=== PATIENT | male | born 1955 | race Caucasian/White ===

== ENCOUNTER 2021-10-17 10:24 | Inpatient (IN) | payer BC ==
[2021-10-17] VITALS (7 sets, daily range): BP systolic 82–103; BP diastolic 50–73
[~2021-10-17] VITALS: Ht 182.9 cm; Wt 95.0 kg
[2021-10-17 11:00] LABS: HEMATOCRIT 37.6 % (42.0-52.0); MEAN CELL VOLUME 85.8 fl (80.0-94.0); MEAN CORPUSCULAR HGB 29.9 pg (27.0-31.0); MEAN CORPUSCULAR HGB CONC 34.8 g/dl (33.0-37.0); MEAN PLATELET VOLUME 9.7 fl (9.6-12.3); PLATELET COUNT AUTOMATED 198 10*3/uL (130-400); RED BLOOD COUNT 4.38 10*6/uL (4.50-5.90); RED CELL DISTRI WIDTH 12.9 % (0-14.5); WHITE BLOOD COUNT 10.1 10*3/uL (4.8-10.8)
[2021-10-17 11:11] LABS: ACT PARTIAL THROMBO TIME 28.2 SECONDS (20.0-32.1); INTERNATIONAL NORM RATIO 1.3 (2.0-3.5)
[2021-10-17 11:16] LABS: BURR CELLS FEW; PLATELET SUFFICIENCY NORMAL (NORMAL); POLYCHROMASIA SLIGHT; TOTAL CELLS COUNTED 100 #CELLS
[2021-10-17 11:17] LABS: ALKALINE PHOSPHATASE 84 U/L (45-117); BUN 24 mg/dl (7-24); CHLORIDE 105 mmol/L (98-107); CREATININE 1.23 mg/dL (0.70-1.30); LIPASE 81 U/L (73-393); POTASSIUM 3.6 mmol/L (3.5-5.1); SGOT/AST 49 IU/L (3-35); SGPT/ALT 53 U/L (12-78); SODIUM 135 mmol/L (136-145); TOTAL PROTEIN 7.4 gm/dL (6.4-8.2)
[2021-10-18] VITALS: BP 97/55
[2021-10-18 04:00] VITALS: BP 99/56
[2021-10-18 06:26] LABS: CHLORIDE 112 mmol/L (98-107); POTASSIUM 3.7 mmol/L (3.5-5.1); SODIUM 141 mmol/L (136-145)
[2021-10-18 06:27] LABS: BASO % 0.1 % (0.0-1.0); HEMATOCRIT 37.5 % (42.0-52.0); LYMPH # 0.7 10*3/uL (1.3-4.4); LYMPH % 6.4 % (27.0-41.0); MEAN CELL VOLUME 88.4 fl (80.0-94.0); MEAN CORPUSCULAR HGB 29.5 pg (27.0-31.0); MEAN CORPUSCULAR HGB CONC 33.3 g/dl (33.0-37.0); MEAN PLATELET VOLUME 10.7 fl (9.6-12.3); MONO # 0.3 10*3/uL (0.1-1.0); MONO % 2.8 % (3.0-9.0); NEUT # 9.5 10*3/uL (2.3-7.9); PLATELET COUNT AUTOMATED 179 10*3/uL (130-400); RED BLOOD COUNT 4.24 10*6/uL (4.50-5.90); RED CELL DISTRI WIDTH 12.9 % (0-14.5); WHITE BLOOD COUNT 10.5 10*3/uL (4.8-10.8)
[2021-10-18 06:44] LABS: ALBUMIN 1.7 gm/dl (3.1-4.5); ALKALINE PHOSPHATASE 85 U/L (45-117); BUN 29 mg/dl (7-24); CREATININE 0.98 mg/dL (0.70-1.30); SGOT/AST 51 IU/L (3-35); SGPT/ALT 45 U/L (12-78); TOTAL PROTEIN 6.5 gm/dL (6.4-8.2)
[2021-10-18 08:00] VITALS: BP 103/67
[2021-10-18 12:00] VITALS: BP 117/35
[2021-10-18 16:00] VITALS: BP 98/56
[2021-10-18 20:00] VITALS: BP 111/74
[2021-10-19] VITALS: BP 97/44
[2021-10-19 04:00] VITALS: BP 98/52
[2021-10-19 06:28] LABS: MEAN CORPUSCULAR HGB 29.1 pg (27.0-31.0); MEAN CORPUSCULAR HGB CONC 33.1 g/dl (33.0-37.0); MEAN PLATELET VOLUME 9.9 fl (9.6-12.3); PLATELET COUNT AUTOMATED 191 10*3/uL (130-400); RED BLOOD COUNT 4.43 10*6/uL (4.50-5.90); RED CELL DISTRI WIDTH 13.1 % (0-14.5); WHITE BLOOD COUNT 9.3 10*3/uL (4.8-10.8)
[2021-10-19 06:41] LABS: BUN 31 mg/dl (7-24); CHLORIDE 111 mmol/L (98-107); CREATININE 0.82 mg/dL (0.70-1.30); SODIUM 142 mmol/L (136-145)
[2021-10-19 07:26] LABS: PLATELET SUFFICIENCY NORMAL (NORMAL); TOTAL CELLS COUNTED 100 #CELLS
[2021-10-19 08:00] VITALS: BP 112/86
[2021-10-19 12:00] VITALS: BP 96/56
[2021-10-19 16:00] VITALS: BP 108/68
[2021-10-19 20:00] VITALS: BP 103/61
[2021-10-20] VITALS: BP 125/63
[2021-10-20 04:00] VITALS: BP 124/73
[2021-10-20 05:03] LABS: BASO % 0.1 % (0.0-1.0); EOS # 0.1 10*3/uL (0.0-0.4); EOS % 0.9 % (1.0-4.0); HEMATOCRIT 41.6 % (42.0-52.0); LYMPH # 0.9 10*3/uL (1.3-4.4); LYMPH % 8.6 % (27.0-41.0); MEAN CELL VOLUME 90.4 fl (80.0-94.0); MEAN CORPUSCULAR HGB 29.1 pg (27.0-31.0); MEAN CORPUSCULAR HGB CONC 32.2 g/dl (33.0-37.0); MEAN PLATELET VOLUME 9.9 fl (9.6-12.3); MONO # 0.3 10*3/uL (0.1-1.0); MONO % 2.4 % (3.0-9.0); NEUT % 87.3 % (47.0-73.0); PLATELET COUNT AUTOMATED 170 10*3/uL (130-400); RED CELL DISTRI WIDTH 13.6 % (0-14.5); WHITE BLOOD COUNT 10.4 10*3/uL (4.8-10.8)
[2021-10-20 05:29] LABS: ALKALINE PHOSPHATASE 110 U/L (45-117); BUN 28 mg/dl (7-24); CHLORIDE 111 mmol/L (98-107); CREATININE 0.89 mg/dL (0.70-1.30); SGOT/AST 136 IU/L (3-35); SGPT/ALT 149 U/L (12-78); SODIUM 142 mmol/L (136-145); TOTAL PROTEIN 6.3 gm/dL (6.4-8.2)
[2021-10-20 05:48] LABS: POTASSIUM 5.3 mmol/L (3.5-5.1)
[2021-10-20 07:32] VITALS: BP 127/61
[2021-10-20 11:15] VITALS: BP 117/69
[2021-10-20 16:00] VITALS: BP 96/76
[2021-10-20 20:00] VITALS: BP 110/65
[2021-10-21] VITALS: BP 102/67
[2021-10-21 04:00] VITALS: BP 112/70
[2021-10-21 06:16] LABS: HEMATOCRIT 43.2 % (42.0-52.0); MEAN CELL VOLUME 90.9 fl (80.0-94.0); MEAN CORPUSCULAR HGB 29.7 pg (27.0-31.0); MEAN CORPUSCULAR HGB CONC 32.6 g/dl (33.0-37.0); MEAN PLATELET VOLUME 10.2 fl (9.6-12.3); PLATELET COUNT AUTOMATED 139 10*3/uL (130-400); RED BLOOD COUNT 4.75 10*6/uL (4.50-5.90); RED CELL DISTRI WIDTH 13.7 % (0-14.5)
[2021-10-21 06:30] LABS: BUN 25 mg/dl (7-24); CHLORIDE 107 mmol/L (98-107); POTASSIUM 4.8 mmol/L (3.5-5.1); SGOT/AST 106 IU/L (3-35); SODIUM 138 mmol/L (136-145)
[2021-10-21 06:34] LABS: ALKALINE PHOSPHATASE 120 U/L (45-117); CREATININE 0.71 mg/dL (0.70-1.30); SGPT/ALT 181 U/L (12-78); TOTAL PROTEIN 6.1 gm/dL (6.4-8.2)
[2021-10-21 06:48] LABS: ATYPICAL LYMPHS 1 % (0-0); PLATELET SUFFICIENCY NORMAL (NORMAL); POLYCHROMASIA SLIGHT; TOTAL CELLS COUNTED 100 #CELLS; TOXIC GRANULATION SLIGHT
[2021-10-21 08:00] VITALS: BP 103/62
[2021-10-21 12:00] VITALS: BP 107/51
[2021-10-21 12:12] LABS: ABG BASE EXCESS 1.3 mmol/L (-2.0-2.0); ARTERIAL BLOOD GAS PH 7.477 (7.35-7.45); ARTERIAL BLOOD GAS PO2 64.6 (80-90)
[2021-10-21 16:00] VITALS: BP 101/68
[2021-10-21 20:00] VITALS: BP 107/72
[2021-10-22] VITALS: BP 104/60
[2021-10-22 04:00] VITALS: BP 102/67
[2021-10-22 06:03] LABS: MEAN CELL VOLUME 89.6 fl (80.0-94.0); MEAN CORPUSCULAR HGB 29.4 pg (27.0-31.0); MEAN CORPUSCULAR HGB CONC 32.8 g/dl (33.0-37.0); MEAN PLATELET VOLUME 9.7 fl (9.6-12.3); PLATELET COUNT AUTOMATED 179 10*3/uL (130-400); RED CELL DISTRI WIDTH 13.2 % (0-14.5); WHITE BLOOD COUNT 15.4 10*3/uL (4.8-10.8)
[2021-10-22 06:06] LABS: BUN 29 mg/dl (7-24); CHLORIDE 105 mmol/L (98-107); CREATININE 0.73 mg/dL (0.70-1.30); POTASSIUM 5.1 mmol/L (3.5-5.1); SGOT/AST 74 IU/L (3-35); SGPT/ALT 163 U/L (12-78); SODIUM 136 mmol/L (136-145)
[2021-10-22 06:09] LABS: ALKALINE PHOSPHATASE 107 U/L (45-117); TOTAL PROTEIN 6.1 gm/dL (6.4-8.2)
[2021-10-22 06:48] LABS: PLATELET SUFFICIENCY NORMAL (NORMAL); TOTAL CELLS COUNTED 100 #CELLS; VACUOLATION OF NEUTROPHILS SLIGHT
[2021-10-22 07:42] VITALS: BP 103/61
[2021-10-22 11:30] VITALS: BP 117/55
[2021-10-22 16:00] VITALS: BP 101/64
[2021-10-22 20:00] VITALS: BP 103/64
[2021-10-23] VITALS: BP 110/67
[2021-10-23 04:00] VITALS: BP 97/57
[2021-10-23 05:55] LABS: ALBUMIN 2.1 gm/dl (3.1-4.5); ALKALINE PHOSPHATASE 109 U/L (45-117); BUN 27 mg/dl (7-24); CHLORIDE 104 mmol/L (98-107); CREATININE 0.75 mg/dL (0.70-1.30); POTASSIUM 4.4 mmol/L (3.5-5.1); SGOT/AST 63 IU/L (3-35); SGPT/ALT 145 U/L (12-78); SODIUM 137 mmol/L (136-145); TOTAL PROTEIN 5.8 gm/dL (6.4-8.2)
[2021-10-23 06:23] LABS: HEMATOCRIT 42.7 % (42.0-52.0); MEAN CELL VOLUME 89.1 fl (80.0-94.0); MEAN CORPUSCULAR HGB 30.1 pg (27.0-31.0); MEAN CORPUSCULAR HGB CONC 33.7 g/dl (33.0-37.0); MEAN PLATELET VOLUME 10.5 fl (9.6-12.3); PLATELET COUNT AUTOMATED 197 10*3/uL (130-400); RED BLOOD COUNT 4.79 10*6/uL (4.50-5.90); RED CELL DISTRI WIDTH 13.4 % (0-14.5); WHITE BLOOD COUNT 15.2 10*3/uL (4.8-10.8)
[2021-10-23 07:31] LABS: TOTAL CELLS COUNTED 100 #CELLS
[2021-10-23 07:32] LABS: BURR CELLS FEW; PLATELET SUFFICIENCY NORMAL (NORMAL); POLYCHROMASIA SLIGHT; TOXIC GRANULATION SLIGHT
[2021-10-23 08:00] VITALS: BP 109/69
[2021-10-23 12:00] VITALS: BP 112/60
[2021-10-23 15:48] VITALS: BP 112/63
[2021-10-23 20:00] VITALS: BP 114/64; BP 94/56
[2021-10-24] VITALS: BP 108/55
[2021-10-24 08:25] VITALS: BP 99/61
[2021-10-24 12:35] VITALS: BP 96/51
[2021-10-24 20:00] VITALS: BP 95/50
[2021-10-25] VITALS: BP 105/55
[2021-10-25 03:26] LABS: ABG BASE EXCESS 0.3 mmol/L (-2.0-2.0); ARTERIAL BLOOD GAS PH 7.468 (7.35-7.45); ARTERIAL BLOOD GAS PO2 72.7 (80-90)
[2021-10-25 06:37] LABS: ALBUMIN 2.3 gm/dl (3.1-4.5); BUN 25 mg/dl (7-24); CHLORIDE 105 mmol/L (98-107); POTASSIUM 4.5 mmol/L (3.5-5.1); SODIUM 135 mmol/L (136-145)
[2021-10-25 06:42] LABS: ALKALINE PHOSPHATASE 83 U/L (45-117); CREATININE 0.82 mg/dL (0.70-1.30); SGOT/AST 30 IU/L (3-35); SGPT/ALT 98 U/L (12-78); TOTAL PROTEIN 5.7 gm/dL (6.4-8.2)
[2021-10-25 06:45] LABS: HEMATOCRIT 44.9 % (42.0-52.0); MEAN CELL VOLUME 89.4 fl (80.0-94.0); MEAN CORPUSCULAR HGB 29.9 pg (27.0-31.0); MEAN CORPUSCULAR HGB CONC 33.4 g/dl (33.0-37.0); MEAN PLATELET VOLUME 9.9 fl (9.6-12.3); PLATELET COUNT AUTOMATED 235 10*3/uL (130-400); RED BLOOD COUNT 5.02 10*6/uL (4.50-5.90); RED CELL DISTRI WIDTH 13.9 % (0-14.5); WHITE BLOOD COUNT 15.2 10*3/uL (4.8-10.8)
[2021-10-25 08:00] VITALS: BP 110/66
[2021-10-25 08:04] LABS: BURR CELLS FEW; PLATELET SUFFICIENCY NORMAL (NORMAL); POLYCHROMASIA SLIGHT; TOTAL CELLS COUNTED 100 #CELLS
[2021-10-25 08:05] LABS: TOXIC GRANULATION SLIGHT
[2021-10-25 12:00] VITALS: BP 99/54
[2021-10-25 16:00] VITALS: BP 94/71
[2021-10-25 20:00] VITALS: BP 104/64
[2021-10-26] VITALS: BP 105/77; BP 120/76
[2021-10-26 04:00] VITALS: BP 109/66
[2021-10-26 06:41] LABS: MEAN CELL VOLUME 87.6 fl (80.0-94.0); MEAN CORPUSCULAR HGB 29.7 pg (27.0-31.0); MEAN PLATELET VOLUME 9.7 fl (9.6-12.3); PLATELET COUNT AUTOMATED 255 10*3/uL (130-400); RED BLOOD COUNT 4.91 10*6/uL (4.50-5.90); RED CELL DISTRI WIDTH 13.9 % (0-14.5)
[2021-10-26 06:52] LABS: ALBUMIN 2.3 gm/dl (3.1-4.5); BUN 27 mg/dl (7-24); CHLORIDE 104 mmol/L (98-107); POTASSIUM 4.3 mmol/L (3.5-5.1); SODIUM 135 mmol/L (136-145)
[2021-10-26 06:55] LABS: ALKALINE PHOSPHATASE 80 U/L (45-117); CREATININE 0.86 mg/dL (0.70-1.30); SGOT/AST 32 IU/L (3-35); SGPT/ALT 84 U/L (12-78); TOTAL PROTEIN 5.5 gm/dL (6.4-8.2)
[2021-10-26 08:00] VITALS: BP 112/79
[2021-10-26 08:02] LABS: BURR CELLS FEW; PLATELET SUFFICIENCY NORMAL (NORMAL); POLYCHROMASIA SLIGHT; TOTAL CELLS COUNTED 100 #CELLS; TOXIC GRANULATION SLIGHT; VACUOLATION OF NEUTROPHILS SLIGHT
[2021-10-26 12:00] VITALS: BP 107/68
[2021-10-26 16:00] VITALS: BP 105/77
[2021-10-27] VITALS: BP 105/77
[2021-10-27 06:44] LABS: HEMATOCRIT 44.7 % (42.0-52.0); MEAN CELL VOLUME 88.5 fl (80.0-94.0); MEAN CORPUSCULAR HGB 29.7 pg (27.0-31.0); MEAN CORPUSCULAR HGB CONC 33.6 g/dl (33.0-37.0); MEAN PLATELET VOLUME 9.4 fl (9.6-12.3); PLATELET COUNT AUTOMATED 271 10*3/uL (130-400); RED BLOOD COUNT 5.05 10*6/uL (4.50-5.90); RED CELL DISTRI WIDTH 14.2 % (0-14.5); WHITE BLOOD COUNT 17.6 10*3/uL (4.8-10.8)
[2021-10-27 06:57] LABS: ALBUMIN 2.4 gm/dl (3.1-4.5); BUN 25 mg/dl (7-24); CHLORIDE 103 mmol/L (98-107); POTASSIUM 4.5 mmol/L (3.5-5.1); SODIUM 134 mmol/L (136-145)
[2021-10-27 07:01] LABS: ALKALINE PHOSPHATASE 117 U/L (45-117); CREATININE 0.85 mg/dL (0.70-1.30); SGOT/AST 24 IU/L (3-35); SGPT/ALT 76 U/L (12-78); TOTAL PROTEIN 5.8 gm/dL (6.4-8.2)
[2021-10-27 07:36] LABS: TOTAL CELLS COUNTED 100 #CELLS
[2021-10-27 07:37] LABS: PLATELET SUFFICIENCY NORMAL (NORMAL)
[2021-10-27 08:00] VITALS: BP 108/63
[2021-10-27 12:00] VITALS: BP 110/65
[2021-10-27 14:00] VITALS: BP 110/65
[2021-10-27 16:00] VITALS: BP 103/60
[2021-10-27 20:00] VITALS: BP 104/54; BP 106/64; BP 94/67
[2021-10-28] VITALS: BP 111/64
[2021-10-28 06:55] LABS: HEMATOCRIT 46.7 % (42.0-52.0); MEAN CELL VOLUME 91.2 fl (80.0-94.0); MEAN CORPUSCULAR HGB 29.7 pg (27.0-31.0); MEAN CORPUSCULAR HGB CONC 32.5 g/dl (33.0-37.0); MEAN PLATELET VOLUME 9.3 fl (9.6-12.3); PLATELET COUNT AUTOMATED 273 10*3/uL (130-400); RED BLOOD COUNT 5.12 10*6/uL (4.50-5.90); RED CELL DISTRI WIDTH 14.2 % (0-14.5); WHITE BLOOD COUNT 19.5 10*3/uL (4.8-10.8)
[2021-10-28 07:18] LABS: ALBUMIN 2.3 gm/dl (3.1-4.5); BUN 28 mg/dl (7-24); CHLORIDE 104 mmol/L (98-107); CREATININE 1.02 mg/dL (0.70-1.30); POTASSIUM 4.4 mmol/L (3.5-5.1); SGOT/AST 28 IU/L (3-35); SGPT/ALT 75 U/L (12-78); SODIUM 135 mmol/L (136-145)
[2021-10-28 07:20] LABS: ALKALINE PHOSPHATASE 79 U/L (45-117); TOTAL PROTEIN 5.9 gm/dL (6.4-8.2)
[2021-10-28 07:33] LABS: ATYPICAL LYMPHS 3 % (0-0); BURR CELLS FEW; PLATELET SUFFICIENCY NORMAL (NORMAL); POLYCHROMASIA SLIGHT; SCHISTOCYTES FEW; TOTAL CELLS COUNTED 100 #CELLS; TOXIC GRANULATION SLIGHT; VACUOLATION OF NEUTROPHILS SLIGHT
[2021-10-28 12:00] VITALS: BP 98/63
[2021-10-28 16:00] VITALS: BP 112/62
[2021-10-28 20:00] VITALS: BP 105/56
[2021-10-29] VITALS: BP 97/60
[2021-10-29 06:19] LABS: CHLORIDE 104 mmol/L (98-107); POTASSIUM 4.4 mmol/L (3.5-5.1); SODIUM 137 mmol/L (136-145)
[2021-10-29 06:27] LABS: HEMATOCRIT 43.4 % (42.0-52.0); MEAN CELL VOLUME 90.4 fl (80.0-94.0); MEAN CORPUSCULAR HGB CONC 33.2 g/dl (33.0-37.0); MEAN PLATELET VOLUME 9.6 fl (9.6-12.3); PLATELET COUNT AUTOMATED 259 10*3/uL (130-400); RED CELL DISTRI WIDTH 14.1 % (0-14.5); WHITE BLOOD COUNT 19.9 10*3/uL (4.8-10.8)
[2021-10-29 06:29] LABS: ALBUMIN 2.3 gm/dl (3.1-4.5); ALKALINE PHOSPHATASE 74 U/L (45-117); BUN 24 mg/dl (7-24); CREATININE 0.75 mg/dL (0.70-1.30); SGOT/AST 23 IU/L (3-35); SGPT/ALT 58 U/L (12-78); TOTAL PROTEIN 5.4 gm/dL (6.4-8.2)
[2021-10-29 07:24] LABS: ATYPICAL LYMPHS 1 % (0-0); BURR CELLS FEW; PLATELET SUFFICIENCY NORMAL (NORMAL); POLYCHROMASIA SLIGHT; TOTAL CELLS COUNTED 100 #CELLS; TOXIC GRANULATION SLIGHT
[2021-10-29 08:00] VITALS: BP 88/60
[2021-10-29 12:00] VITALS: BP 107/57
[2021-10-29 16:00] VITALS: BP 110/73
[2021-10-29 20:00] VITALS: BP 96/52; BP 99/53
[2021-10-30] VITALS (7 sets, daily range): BP systolic 86–121; BP diastolic 50–74
[2021-10-30 01:46] LABS: ABG BASE EXCESS 0.7 mmol/L (-2.0-2.0); ARTERIAL BLOOD GAS PH 7.464 (7.35-7.45); ARTERIAL BLOOD GAS PO2 64.5 (80-90)
[2021-10-30 06:06] LABS: ALBUMIN 2.3 gm/dl (3.1-4.5); ALKALINE PHOSPHATASE 80 U/L (45-117); BUN 19 mg/dl (7-24); CHLORIDE 103 mmol/L (98-107); CREATININE 0.68 mg/dL (0.70-1.30); POTASSIUM 3.5 mmol/L (3.5-5.1); SGOT/AST 27 IU/L (3-35); SGPT/ALT 59 U/L (12-78); SODIUM 136 mmol/L (136-145); TOTAL PROTEIN 5.6 gm/dL (6.4-8.2)
[2021-10-30 06:12] LABS: BASO % 0.2 % (0.0-1.0); EOS # 0.4 10*3/uL (0.0-0.4); EOS % 1.9 % (1.0-4.0); HEMATOCRIT 44.4 % (42.0-52.0); LYMPH # 1.1 10*3/uL (1.3-4.4); LYMPH % 5.8 % (27.0-41.0); MEAN CELL VOLUME 89.7 fl (80.0-94.0); MEAN CORPUSCULAR HGB 29.9 pg (27.0-31.0); MEAN CORPUSCULAR HGB CONC 33.3 g/dl (33.0-37.0); MEAN PLATELET VOLUME 9.4 fl (9.6-12.3); MONO # 0.7 10*3/uL (0.1-1.0); MONO % 3.6 % (3.0-9.0); NEUT # 17.4 10*3/uL (2.3-7.9); NEUT % 87.7 % (47.0-73.0); PLATELET COUNT AUTOMATED 258 10*3/uL (130-400); RED BLOOD COUNT 4.95 10*6/uL (4.50-5.90); RED CELL DISTRI WIDTH 14.1 % (0-14.5); WHITE BLOOD COUNT 19.8 10*3/uL (4.8-10.8)
[2021-10-31] VITALS: BP 92/62
[2021-10-31 06:26] LABS: BASO % 0.1 % (0.0-1.0); EOS # 0.6 10*3/uL (0.0-0.4); EOS % 3.7 % (1.0-4.0); HEMATOCRIT 48.3 % (42.0-52.0); LYMPH # 1.3 10*3/uL (1.3-4.4); LYMPH % 8.3 % (27.0-41.0); MEAN CELL VOLUME 90.3 fl (80.0-94.0); MEAN CORPUSCULAR HGB 29.7 pg (27.0-31.0); MEAN CORPUSCULAR HGB CONC 32.9 g/dl (33.0-37.0); MEAN PLATELET VOLUME 9.2 fl (9.6-12.3); MONO # 0.7 10*3/uL (0.1-1.0); MONO % 4.8 % (3.0-9.0); NEUT # 12.4 10*3/uL (2.3-7.9); NEUT % 82.4 % (47.0-73.0); PLATELET COUNT AUTOMATED 285 10*3/uL (130-400); RED BLOOD COUNT 5.35 10*6/uL (4.50-5.90); RED CELL DISTRI WIDTH 14.6 % (0-14.5)
[2021-10-31 06:27] LABS: ALKALINE PHOSPHATASE 83 U/L (45-117); CHLORIDE 104 mmol/L (98-107); POTASSIUM 3.9 mmol/L (3.5-5.1); SODIUM 135 mmol/L (136-145)
[2021-10-31 06:34] LABS: ALBUMIN 2.4 gm/dl (3.1-4.5); BUN 16 mg/dl (7-24); CREATININE 0.76 mg/dL (0.70-1.30); SGOT/AST 21 IU/L (3-35); SGPT/ALT 50 U/L (12-78); TOTAL PROTEIN 5.9 gm/dL (6.4-8.2)
[2021-10-31 08:00] VITALS: BP 94/60
[2021-10-31 12:00] VITALS: BP 97/69
[2021-10-31 16:00] VITALS: BP 102/76
[2021-10-31 20:00] VITALS: BP 111/61
[2021-11-01] VITALS: BP 84/60; BP 90/42
[2021-11-01 04:00] VITALS: BP 94/48
[2021-11-01 08:00] VITALS: BP 93/55
[2021-11-01 12:00] VITALS: BP 81/49
[2021-11-01 16:00] VITALS: BP 94/51
[2021-11-02] VITALS: BP 95/58
[2021-11-02 07:06] LABS: BASO % 0.2 % (0.0-1.0); EOS # 0.7 10*3/uL (0.0-0.4); EOS % 5.8 % (1.0-4.0); HEMATOCRIT 42.8 % (42.0-52.0); LYMPH # 1.1 10*3/uL (1.3-4.4); MEAN CELL VOLUME 89.9 fl (80.0-94.0); MEAN CORPUSCULAR HGB 30.3 pg (27.0-31.0); MEAN CORPUSCULAR HGB CONC 33.6 g/dl (33.0-37.0); MONO # 0.8 10*3/uL (0.1-1.0); MONO % 6.8 % (3.0-9.0); NEUT # 9.5 10*3/uL (2.3-7.9); NEUT % 77.6 % (47.0-73.0); PLATELET COUNT AUTOMATED 203 10*3/uL (130-400); RED BLOOD COUNT 4.76 10*6/uL (4.50-5.90); RED CELL DISTRI WIDTH 14.4 % (0-14.5); WHITE BLOOD COUNT 12.3 10*3/uL (4.8-10.8)
[2021-11-02 07:21] LABS: ALBUMIN 2.2 gm/dl (3.1-4.5); BUN 12 mg/dl (7-24); CHLORIDE 104 mmol/L (98-107); CREATININE 0.71 mg/dL (0.70-1.30); POTASSIUM 3.8 mmol/L (3.5-5.1); SGOT/AST 15 IU/L (3-35); SGPT/ALT 37 U/L (12-78); SODIUM 135 mmol/L (136-145); TOTAL PROTEIN 5.6 gm/dL (6.4-8.2)
[2021-11-02 07:24] LABS: ALKALINE PHOSPHATASE 74 U/L (45-117); CPK 24 U/L (39-308)
[2021-11-02 08:00] VITALS: BP 86/59
[2021-11-02 12:00] VITALS: BP 99/57
[2021-11-02 16:00] VITALS: BP 117/73
[2021-11-02 20:00] VITALS: BP 100/60
[2021-11-03] VITALS: BP 102/61
[2021-11-03 04:00] VITALS: BP 92/50
[2021-11-03 06:23] LABS: BASO % 0.2 % (0.0-1.0); EOS # 0.9 10*3/uL (0.0-0.4); EOS % 6.8 % (1.0-4.0); HEMATOCRIT 41.2 % (42.0-52.0); LYMPH % 8.1 % (27.0-41.0); MEAN CELL VOLUME 88.8 fl (80.0-94.0); MEAN CORPUSCULAR HGB CONC 33.7 g/dl (33.0-37.0); MEAN PLATELET VOLUME 8.9 fl (9.6-12.3); MONO # 1.2 10*3/uL (0.1-1.0); MONO % 9.3 % (3.0-9.0); NEUT # 9.4 10*3/uL (2.3-7.9); PLATELET COUNT AUTOMATED 180 10*3/uL (130-400); RED BLOOD COUNT 4.64 10*6/uL (4.50-5.90); RED CELL DISTRI WIDTH 14.4 % (0-14.5); WHITE BLOOD COUNT 12.5 10*3/uL (4.8-10.8)
[2021-11-03 08:00] VITALS: BP 108/81
[2021-11-03 10:33] LABS: ALBUMIN 2.2 gm/dl (3.1-4.5); BUN 11 mg/dl (7-24); CHLORIDE 109 mmol/L (98-107); CREATININE 0.71 mg/dL (0.70-1.30); POTASSIUM 3.9 mmol/L (3.5-5.1); SGOT/AST 15 IU/L (3-35); SGPT/ALT 40 U/L (12-78); SODIUM 139 mmol/L (136-145)
[2021-11-03 10:36] LABS: ALKALINE PHOSPHATASE 75 U/L (45-117); CPK 18 U/L (39-308); TOTAL PROTEIN 5.8 gm/dL (6.4-8.2)
[2021-11-03 12:00] VITALS: BP 99/54
[2021-11-03 17:48] VITALS: BP 100/58
[2021-11-03 20:00] VITALS: BP 108/58
[2021-11-04] VITALS: BP 114/68
[2021-11-04 06:52] LABS: BASO % 0.3 % (0.0-1.0); EOS # 0.7 10*3/uL (0.0-0.4); EOS % 6.8 % (1.0-4.0); HEMATOCRIT 39.2 % (42.0-52.0); LYMPH # 1.3 10*3/uL (1.3-4.4); LYMPH % 12.1 % (27.0-41.0); MEAN CELL VOLUME 88.3 fl (80.0-94.0); MEAN CORPUSCULAR HGB 30.2 pg (27.0-31.0); MEAN CORPUSCULAR HGB CONC 34.2 g/dl (33.0-37.0); MEAN PLATELET VOLUME 9.3 fl (9.6-12.3); MONO # 1.1 10*3/uL (0.1-1.0); MONO % 10.3 % (3.0-9.0); NEUT # 7.3 10*3/uL (2.3-7.9); NEUT % 69.8 % (47.0-73.0); PLATELET COUNT AUTOMATED 164 10*3/uL (130-400); RED BLOOD COUNT 4.44 10*6/uL (4.50-5.90); RED CELL DISTRI WIDTH 14.5 % (0-14.5); WHITE BLOOD COUNT 10.4 10*3/uL (4.8-10.8)
[2021-11-04 07:23] LABS: CHLORIDE 107 mmol/L (98-107); POTASSIUM 3.8 mmol/L (3.5-5.1); SODIUM 137 mmol/L (136-145)
[2021-11-04 07:34] LABS: ALBUMIN 2.2 gm/dl (3.1-4.5); ALKALINE PHOSPHATASE 77 U/L (45-117); BUN 11 mg/dl (7-24); CPK 16 U/L (39-308); CREATININE 0.58 mg/dL (0.70-1.30); SGOT/AST 14 IU/L (3-35); SGPT/ALT 44 U/L (12-78); TOTAL PROTEIN 5.9 gm/dL (6.4-8.2)
[2021-11-04 08:00] VITALS: BP 89/57
[2021-11-04 12:00] VITALS: BP 91/57
[2021-11-04 16:00] VITALS: BP 95/64
[2021-11-04] MEDS ORDERED: KEFLEX 500 MG E2 CAP PO (16:57)
[2021-11-04 20:00] VITALS: BP 103/62
[2021-11-05 06:41] LABS: BASO % 0.1 % (0.0-1.0); EOS # 0.8 10*3/uL (0.0-0.4); EOS % 8.3 % (1.0-4.0); HEMATOCRIT 40.6 % (42.0-52.0); LYMPH # 1.3 10*3/uL (1.3-4.4); LYMPH % 14.3 % (27.0-41.0); MEAN CELL VOLUME 88.3 fl (80.0-94.0); MEAN CORPUSCULAR HGB 30.2 pg (27.0-31.0); MEAN CORPUSCULAR HGB CONC 34.2 g/dl (33.0-37.0); MEAN PLATELET VOLUME 9.1 fl (9.6-12.3); MONO # 0.9 10*3/uL (0.1-1.0); MONO % 10.3 % (3.0-9.0); NEUT # 6.1 10*3/uL (2.3-7.9); NEUT % 66.3 % (47.0-73.0); PLATELET COUNT AUTOMATED 176 10*3/uL (130-400); RED CELL DISTRI WIDTH 14.6 % (0-14.5); WHITE BLOOD COUNT 9.2 10*3/uL (4.8-10.8)
[2021-11-05 08:00] VITALS: BP 96/59
[2021-11-05 12:00] VITALS: BP 92/65
[2021-11-05 16:00] VITALS: BP 104/64
[2021-11-05 20:00] VITALS: BP 114/58
[2021-11-06] VITALS: BP 92/59
[2021-11-06 06:50] LABS: BASO % 0.2 % (0.0-1.0); EOS # 0.7 10*3/uL (0.0-0.4); EOS % 8.7 % (1.0-4.0); HEMATOCRIT 38.7 % (42.0-52.0); LYMPH # 1.1 10*3/uL (1.3-4.4); LYMPH % 13.3 % (27.0-41.0); MEAN CELL VOLUME 88.8 fl (80.0-94.0); MEAN CORPUSCULAR HGB 29.8 pg (27.0-31.0); MEAN CORPUSCULAR HGB CONC 33.6 g/dl (33.0-37.0); MEAN PLATELET VOLUME 8.9 fl (9.6-12.3); MONO # 0.8 10*3/uL (0.1-1.0); NEUT # 5.6 10*3/uL (2.3-7.9); NEUT % 67.1 % (47.0-73.0); PLATELET COUNT AUTOMATED 164 10*3/uL (130-400); RED BLOOD COUNT 4.36 10*6/uL (4.50-5.90); RED CELL DISTRI WIDTH 14.7 % (0-14.5); WHITE BLOOD COUNT 8.4 10*3/uL (4.8-10.8)
[2021-11-06 07:03] LABS: ALKALINE PHOSPHATASE 81 U/L (45-117); BUN 9 mg/dl (7-24); CHLORIDE 107 mmol/L (98-107); CREATININE 0.63 mg/dL (0.70-1.30); POTASSIUM 3.9 mmol/L (3.5-5.1); SGOT/AST 23 IU/L (3-35); SGPT/ALT 77 U/L (12-78); SODIUM 137 mmol/L (136-145); TOTAL PROTEIN 6.1 gm/dL (6.4-8.2)
[2021-11-06 08:00] VITALS: BP 101/57
[2021-11-06 12:00] VITALS: BP 100/60
[2021-11-06 16:00] VITALS: BP 110/57
[2021-11-06 20:00] VITALS: BP 103/59
[2021-11-07] VITALS: BP 114/66
[2021-11-07 07:26] LABS: BASO % 0.2 % (0.0-1.0); EOS # 0.7 10*3/uL (0.0-0.4); EOS % 7.8 % (1.0-4.0); HEMATOCRIT 35.6 % (42.0-52.0); LYMPH # 0.9 10*3/uL (1.3-4.4); LYMPH % 10.6 % (27.0-41.0); MEAN CELL VOLUME 88.6 fl (80.0-94.0); MEAN CORPUSCULAR HGB 29.9 pg (27.0-31.0); MEAN CORPUSCULAR HGB CONC 33.7 g/dl (33.0-37.0); MEAN PLATELET VOLUME 9.2 fl (9.6-12.3); MONO # 0.8 10*3/uL (0.1-1.0); MONO % 9.5 % (3.0-9.0); NEUT # 6.3 10*3/uL (2.3-7.9); NEUT % 71.1 % (47.0-73.0); PLATELET COUNT AUTOMATED 166 10*3/uL (130-400); RED BLOOD COUNT 4.02 10*6/uL (4.50-5.90); RED CELL DISTRI WIDTH 14.8 % (0-14.5); WHITE BLOOD COUNT 8.9 10*3/uL (4.8-10.8)
[2021-11-07 08:00] VITALS: BP 91/53
[2021-11-07 08:24] LABS: ALKALINE PHOSPHATASE 79 U/L (45-117); BUN 8 mg/dl (7-24); CHLORIDE 107 mmol/L (98-107); CREATININE 0.63 mg/dL (0.70-1.30); POTASSIUM 3.8 mmol/L (3.5-5.1); SGOT/AST 27 IU/L (3-35); SGPT/ALT 90 U/L (12-78); SODIUM 139 mmol/L (136-145); TOTAL PROTEIN 5.8 gm/dL (6.4-8.2)
[2021-11-07 16:00] VITALS: BP 97/65
[2021-11-07 20:00] VITALS: BP 107/63
[2021-11-07 22:00] VITALS: BP 107/63
[2021-11-07 23:44] VITALS: BP 107/59
[2021-11-08 08:00] VITALS: BP 100/57
[2021-11-08 12:00] VITALS: BP 90/75
[2021-11-08 16:00] VITALS: BP 118/69
[2021-11-08 20:00] VITALS: BP 107/62
[2021-11-08 23:38] VITALS: BP 118/56
[2021-11-09 08:00] VITALS: BP 109/73
[2021-11-09 08:41] LABS: ALBUMIN 1.9 gm/dl (3.1-4.5); ALKALINE PHOSPHATASE 105 U/L (45-117); BUN 11 mg/dl (7-24); CHLORIDE 106 mmol/L (98-107); POTASSIUM 4.1 mmol/L (3.5-5.1); SGOT/AST 35 IU/L (3-35); SGPT/ALT 106 U/L (12-78); SODIUM 138 mmol/L (136-145); TOTAL PROTEIN 6.6 gm/dL (6.4-8.2)
[2021-11-09 12:00] VITALS: BP 108/63
[2021-11-09 15:06] VITALS: BP 135/70
[2021-11-09 20:51] LABS: ABG BASE EXCESS 4.6 mmol/L (-2.0-2.0); ARTERIAL BLOOD GAS PH 7.487 (7.35-7.45); ARTERIAL BLOOD GAS PO2 75.6 (80-90)
[2021-11-09 21:00] VITALS: BP 101/62
[2021-11-10] VITALS (28 sets, daily range): BP systolic 56–150; BP diastolic 32–94
[2021-11-10 06:05] LABS: BASO % 0.2 % (0.0-1.0); EOS # 0.4 10*3/uL (0.0-0.4); EOS % 2.7 % (1.0-4.0); HEMATOCRIT 42.1 % (42.0-52.0); LYMPH # 1.1 10*3/uL (1.3-4.4); LYMPH % 8.2 % (27.0-41.0); MEAN CELL VOLUME 92.3 fl (80.0-94.0); MEAN CORPUSCULAR HGB 29.6 pg (27.0-31.0); MEAN CORPUSCULAR HGB CONC 32.1 g/dl (33.0-37.0); MEAN PLATELET VOLUME 9.5 fl (9.6-12.3); MONO # 0.8 10*3/uL (0.1-1.0); MONO % 5.9 % (3.0-9.0); NEUT # 11.3 10*3/uL (2.3-7.9); NEUT % 82.2 % (47.0-73.0); PLATELET COUNT AUTOMATED 228 10*3/uL (130-400); RED BLOOD COUNT 4.56 10*6/uL (4.50-5.90); RED CELL DISTRI WIDTH 15.3 % (0-14.5); WHITE BLOOD COUNT 13.8 10*3/uL (4.8-10.8)
[2021-11-10 06:14] LABS: BUN 15 mg/dl (7-24); CHLORIDE 107 mmol/L (98-107); POTASSIUM 4.9 mmol/L (3.5-5.1); SODIUM 136 mmol/L (136-145)
[2021-11-10 06:23] LABS: ALKALINE PHOSPHATASE 142 U/L (45-117); CREATININE 0.78 mg/dL (0.70-1.30); SGOT/AST 35 IU/L (3-35); SGPT/ALT 104 U/L (12-78); TOTAL PROTEIN 7.1 gm/dL (6.4-8.2)
[2021-11-10 08:33] LABS: ALBUMIN 1.7 gm/dl (3.1-4.5)
[2021-11-10 09:42] LABS: ABG BASE EXCESS 0.7 mmol/L (-2.0-2.0); ARTERIAL BLOOD GAS PH 7.465 (7.35-7.45)
[2021-11-10 14:58] LABS: ARTERIAL BLOOD GAS PO2 76.9 (80-90)
[2021-11-10 14:59] LABS: ARTERIAL BLOOD GAS PH 7.119 (7.35-7.45)
[2021-11-10 15:00] LABS: ABG BASE EXCESS -7.3 mmol/L (-2.0-2.0)
[2021-11-10 18:17] LABS: ABG BASE EXCESS -4.1 mmol/L (-2.0-2.0); ARTERIAL BLOOD GAS PO2 81.6 (80-90)
[2021-11-10 18:18] LABS: ARTERIAL BLOOD GAS PH 7.106 (7.35-7.45)
[2021-11-10 21:58] LABS: ARTERIAL BLOOD GAS PH 7.265 (7.35-7.45)
[2021-11-10 21:59] LABS: ABG BASE EXCESS -2.7 mmol/L (-2.0-2.0); ARTERIAL BLOOD GAS PO2 123.9 (80-90)
[2021-11-11] VITALS: BP 67/37
[2021-11-11 00:15] VITALS: BP 67/37
[2021-11-11 00:17] LABS: BASO # 0.1 10*3/uL (0.0-0.1); BASO % 0.4 % (0.0-1.0); EOS % 0.1 % (1.0-4.0); HEMATOCRIT 42.4 % (42.0-52.0); LYMPH % 26.7 % (27.0-41.0); MEAN CORPUSCULAR HGB 29.9 pg (27.0-31.0); MEAN CORPUSCULAR HGB CONC 30.4 g/dl (33.0-37.0); MEAN PLATELET VOLUME 9.2 fl (9.6-12.3); MONO # 0.7 10*3/uL (0.1-1.0); MONO % 5.9 % (3.0-9.0); NEUT # 7.2 10*3/uL (2.3-7.9); NEUT % 64.6 % (47.0-73.0); NUCLEATED RED BLOOD CELL 0.2 % (0.0-0.0); PLATELET COUNT AUTOMATED 273 10*3/uL (130-400); RED BLOOD COUNT 4.32 10*6/uL (4.50-5.90); RED CELL DISTRI WIDTH 15.1 % (0-14.5); WHITE BLOOD COUNT 11.1 10*3/uL (4.8-10.8)
[2021-11-11 00:18] LABS: MEAN CELL VOLUME 98.1 fl (80.0-94.0)
[2021-11-11 00:34] LABS: ALBUMIN 1.5 gm/dl (3.1-4.5); CREATININE 2.05 mg/dL (0.70-1.30); TOTAL PROTEIN 6.3 gm/dL (6.4-8.2)
[2021-11-11 00:40] LABS: POTASSIUM 6.6 mmol/L (3.5-5.1)
[2021-11-11 01:00] VITALS: BP 85/50
[2021-11-11 01:15] VITALS: BP 136/89
[2021-11-11 01:45] VITALS: BP 60/39
[2021-11-11 02:00] VITALS: BP 49/24
== END 2021-11-11 05:12 | DRG 871 ==
LOC: ED 10:24 → ICCU 11:40 → EDHOLD 11:40 → 4E 11:40 → ICCU 12:55 → 4E 10-23 15:31 → ICCU 11-09 20:47
PROVIDERS: Emergency Medicine; Family Medicine; Hospitalist; Internal Medicine; Internal Medicine Critical Care Medicine; Registered Nurse; Student in an Organized Health Care Education/Training Program; ADMIT Internal Medicine; ATTEND Internal Medicine
PROC: XW033H5 Introduction of Tocilizumab into Peripheral Vein, Percutaneous Approach, New Technology Group 5 (ICD-10-PCS; 2021-10-17)
PROC: XW033E5 Introduction of Remdesivir Anti-infective into Peripheral Vein, Percutaneous Approach, New Technology Group 5 (ICD-10-PCS; principal; 2021-10-18)
PROC: 5A0935A Assistance with Respiratory Ventilation, Less than 24 Consecutive Hours, High Flow/Velocity Cannula (ICD-10-PCS; 2021-10-18)
PROC: 5A0935A Assistance with Respiratory Ventilation, Less than 24 Consecutive Hours, High Flow/Velocity Cannula (ICD-10-PCS; 2021-10-20)
PROC: 5A0945A Assistance with Respiratory Ventilation, 24-96 Consecutive Hours, High Flow/Velocity Cannula (ICD-10-PCS; 2021-10-21)
PROC: 5A09357 Assistance with Respiratory Ventilation, Less than 24 Consecutive Hours, Continuous Positive Airway Pressure (ICD-10-PCS; 2021-10-30)
PROC: 5A09357 Assistance with Respiratory Ventilation, Less than 24 Consecutive Hours, Continuous Positive Airway Pressure (ICD-10-PCS; 2021-10-31)
PROC: 5A09357 Assistance with Respiratory Ventilation, Less than 24 Consecutive Hours, Continuous Positive Airway Pressure (ICD-10-PCS; 2021-11-01)
PROC: 5A09357 Assistance with Respiratory Ventilation, Less than 24 Consecutive Hours, Continuous Positive Airway Pressure (ICD-10-PCS; 2021-11-03)
PROC: 5A0935A Assistance with Respiratory Ventilation, Less than 24 Consecutive Hours, High Flow/Velocity Cannula (ICD-10-PCS; 2021-11-04)
PROC: 5A0935A Assistance with Respiratory Ventilation, Less than 24 Consecutive Hours, High Flow/Velocity Cannula (ICD-10-PCS; 2021-11-05)
PROC: 5A09357 Assistance with Respiratory Ventilation, Less than 24 Consecutive Hours, Continuous Positive Airway Pressure (ICD-10-PCS; 2021-11-05)
PROC: 5A0935A Assistance with Respiratory Ventilation, Less than 24 Consecutive Hours, High Flow/Velocity Cannula (ICD-10-PCS; 2021-11-06)
PROC: 5A09357 Assistance with Respiratory Ventilation, Less than 24 Consecutive Hours, Continuous Positive Airway Pressure (ICD-10-PCS; 2021-11-06)
PROC: 5A0935A Assistance with Respiratory Ventilation, Less than 24 Consecutive Hours, High Flow/Velocity Cannula (ICD-10-PCS; 2021-11-07)
PROC: 5A09357 Assistance with Respiratory Ventilation, Less than 24 Consecutive Hours, Continuous Positive Airway Pressure (ICD-10-PCS; 2021-11-07)
PROC: 5A09357 Assistance with Respiratory Ventilation, Less than 24 Consecutive Hours, Continuous Positive Airway Pressure (ICD-10-PCS; 2021-11-08)
PROC: 5A09357 Assistance with Respiratory Ventilation, Less than 24 Consecutive Hours, Continuous Positive Airway Pressure (ICD-10-PCS; 2021-11-09)
PROC: 5A1935Z Respiratory Ventilation, Less than 24 Consecutive Hours (ICD-10-PCS; 2021-11-10)
PROC: 0BH17EZ Insertion of Endotracheal Airway into Trachea, Via Natural or Artificial Opening (ICD-10-PCS; 2021-11-10)
PROC: 05HC33Z Insertion of Infusion Device into Left Basilic Vein, Percutaneous Approach (ICD-10-PCS; 2021-11-10)
PROC: 02HV33Z Insertion of Infusion Device into Superior Vena Cava, Percutaneous Approach (ICD-10-PCS; 2021-11-10)
PROC: B548ZZA Ultrasonography of Superior Vena Cava, Guidance (ICD-10-PCS; 2021-11-10)
DX: A41.89 Other specified sepsis (principal); J12.82 Pneumonia due to coronavirus disease 2019; U07.1 COVID-19; E43 Unspecified severe protein-calorie malnutrition; J80 Acute respiratory distress syndrome; E87.1 Hypo-osmolality and hyponatremia; E87.2 Acidosis; J93.9 Pneumothorax, unspecified; D64.9 Anemia, unspecified; M13.862 Other specified arthritis, left knee; R65.20 Severe sepsis without septic shock; Z68.28 Body mass index [BMI] 28.0-28.9, adult; Z98.2 Presence of cerebrospinal fluid drainage device; Z93.9 Artificial opening status, unspecified; J98.2 Interstitial emphysema